=== PATIENT | male | born 1940 | race Caucasian/White ===

== ENCOUNTER 2018-06-29 21:52 | Emergency (ER) | payer OTHER ==
[~2018-06-29] VITALS: Ht 185.4 cm; Wt 98.0 kg
[~2018-06-29 21:52] MED LIST: ACETAMINOPHEN-1 EAC1 PO; ASPIR-TRIN325 MG; HYDROCHLOROTHIA25 M2; PRINIVIL20 MG; ZOCOR40 MG; ZOFRAN4 MG PO
[2018-06-29] MEDS ORDERED: PAXIL 20 MG TAB20 MG (22:14)
[2018-06-29] MEDS ORDERED: TYLENOL PM EX-1 EACH PO (22:15)
[2018-06-29] MEDS ORDERED: CLARITIN10 MG (22:15)
[2018-06-29] MEDS ORDERED: CENTRUM SILVER1 EAC2 (22:15)
[2018-06-29] MEDS ORDERED: NORCO 5-325 TA1 EACH (22:16)
[2018-06-29] MEDS ORDERED: NATURAL LAXATIV25 MG (22:16)
[2018-06-29 22:50] LABS: HEMATOCRIT 27.6 % (42.0-52.0); HEMOGLOBIN 9.7 gm/dL (14.0-18.0); MCH 33.1 pg (26.0-34.0); MCHC 34.9 g/dL (28.0-37.0); MCV 94.6 fL (80.0-100.0); MPV 6.8 fl. (7.2-11.1); NUCLEATED RBCS 0 /100WBC; PLATELET COUNT* 247 thou/uL (150-400); RBC 2.92 mil/uL (4.50-6.00); RDW-CV 13.6 % (10.5-14.5); WBC 7.1 thou/uL (4.0-11.0)
[2018-06-29 22:56] LABS: ANION GAP 3 mmol/L (7-16); BUN 20 mg/dL (7-18); CALCIUM 8.9 mg/dL (8.5-10.1); CHLORIDE 98 mmol/L (98-107); CO2 30 mmol/L (21-32); GLUCOSE 126 mg/dL (70-99); POTASSIUM 3.8 mmol/L (3.5-5.1); SODIUM 131 mmol/L (136-145)
[2018-06-29 23:03] LABS: ALBUMIN 3.3 g/dL (3.4-5.0); ALKALINE PHOSPHATASE 74 U/L (46-116); SGOT 25 U/L (15-37); SGPT 15 U/L (30-65); TOTAL BILIRUBIN 0.7 mg/dL (<0.1-1.0); TOTAL PROTEIN 6.5 g/dL (6.4-8.2); TROPONIN-I LEVEL <0.06 ng/mL (<0.06)
[2018-06-29] MEDS ORDERED: ONDANSETRON HCL4 M2 PO (23:36)
[2018-06-30 00:06] VITALS: BP 120/64
[2018-06-30 00:21] LABS: ABSOLUTE LYMPHOCYTES 0.3 thou/uL (0.8-5.3); ABSOLUTE MONOCYTES 0.9 thou/uL (0.0-1.2); PLATELET ESTIMATE ADEQUATE
== END 2018-06-30 00:06 | disposition home or self-care (01) ==
LOC: M.ERS 21:52
PROVIDERS: Physician Assistant
DX: R11.0 Nausea (principal); G89.18 Other acute postprocedural pain; I10 Essential (primary) hypertension; M19.90 Unspecified osteoarthritis, unspecified site; E78.00 Pure hypercholesterolemia, unspecified; Z96.653 Presence of artificial knee joint, bilateral; Z96.611 Presence of right artificial shoulder joint; Z96.612 Presence of left artificial shoulder joint; Z88.8 Allergy status to other drugs, medicaments and biological substances

== ENCOUNTER → 2018-09-19 | Outpatient (CLI) | payer OTHER ==
[~2018-09-19] MED LIST changes: +CENTRUM SILVER1 EAC2; +CLARITIN10 MG; +NATURAL LAXATIV25 MG; +NORCO 5-325 TA1 EACH; +ONDANSETRON HCL4 M2 PO; +PAXIL 20 MG TAB20 MG; +TYLENOL PM EX-1 EACH PO
== END ==
LOC: M.RAD 15:49
DX: J98.4 Other disorders of lung (principal); Z87.891 Personal history of nicotine dependence

== ENCOUNTER → 2019-03-21 | Outpatient (CLI) | payer OTHER ==
--- NOTE | 2019-03-25 16:57 | 24HR ---
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 The total time analyzed was 23:58 hours. Start time was 1:15pm1. There was a total of [id number] beats. Less than 1% were Ventricular beats, 2% were Supraventricular beats, and patient is not paced. Mean Heart Rate:72 Total Beats: [id number] Maximum Heart Rate:96 @ 5:15pm1 Tachycardia beats: 0 (>=100 BPM) 0% Minimum Heart Rate:58 @ 2:17am2 Bradycardia beats: 0 (<= 50 BPM) 0% Pauses: 0 (> 2.5 sec.) Longest RR at: 1.322 seconds at 8:17am2 Ventricular Ectopy Total: 2 Single: 2 Pairs: 0 Total Runs: 0 Beats in Runs: 0 Longest Run: 0 @ 1:15pm1( 0 BPM) Fastest Run: 0 @ 1:15pm1( 0 BPM) RonT: 0 Conclusion 1. Underlying NSR 2. No SVT or AFIB 3. No diary was returned Electronically Signed On 03-25-2019 16:57:22 CDT by Jalil Cannon [email or web address] <ELECTRONICALLY SIGNED> By: Jalil Cannon MD, FAC 03/25/19 1657 1132 1132 Jalil Cannon MD, FACC /EPI
== END ==
LOC: M.CRD 12:38
DX: R42 Dizziness and giddiness (principal); E78.2 Mixed hyperlipidemia; I10 Essential (primary) hypertension; M19.90 Unspecified osteoarthritis, unspecified site; F41.9 Anxiety disorder, unspecified; E66.3 Overweight; F33.1 Major depressive disorder, recurrent, moderate; Z79.899 Other long term (current) drug therapy; Z82.49 Family history of ischemic heart disease and other diseases of the circulatory system; Z82.3 Family history of stroke; Z80.3 Family history of malignant neoplasm of breast; Z68.29 Body mass index [BMI] 29.0-29.9, adult